=== PATIENT | female | born 1980 | race Two or more races ===

== ENCOUNTER 2018-06-19 12:52 | Emergency (ER) | payer OTHER ==
[~2018-06-19] VITALS: Ht 170.2 cm; Wt 57.0 kg
[2018-06-19 12:55] VITALS: BP 120/84
== END 2018-06-19 18:42 | disposition left against medical advice (07) ==
LOC: ER 13:11
DX: Z53.21 Procedure and treatment not carried out due to patient leaving prior to being seen by health care provider (principal)